=== PATIENT | male | born 1995 | race Caucasian/White ===

== ENCOUNTER 2020-04-22 20:41 | Emergency (ER) | payer SELFPAY ==
[~2020-04-22] VITALS: Ht 175.3 cm; Wt 109.5 kg
[2020-04-22 21:20] LABS: BASOPHILS # (AUTO) 0.1 10^3/uL (0.0-0.1); BASOPHILS % (AUTO) 1 % (0-10); EOSINOPHILS # (AUTO) 0.3 10^3/uL (0.0-0.3); EOSINOPHILS % (AUTO) 3 % (0-10); HEMATOCRIT 50 % (40-54); HEMOGLOBIN 17.4 G/DL (13.3-17.7); LYMPHOCYTES # (AUTO) 2.9 X 10^3 (1.0-4.0); LYMPHOCYTES % (AUTO) 37 % (12-44); MEAN CORPUSCULAR HEMOGLOBIN 30 PG (25-34); MEAN CORPUSCULAR HGB CONC 35 G/DL (32-36); MEAN CORPUSCULAR VOLUME 86 FL (80-99); MEAN PLATELET VOLUME 11.2 FL (7.4-10.4); MONOCYTES # (AUTO) 0.4 X 10^3 (0.0-1.0); MONOCYTES % (AUTO) 5 % (0-12); NEUTROPHILS # (AUTO) 4.2 X 10^3 (1.8-7.8); NEUTROPHILS % (AUTO) 54 % (42-75); PLATELET COUNT 232 10^3/uL (130-400); RED CELL DISTRIBUTION WIDTH 11.9 % (10.0-14.5); WHITE BLOOD COUNT 7.8 10^3/uL (4.3-11.0)
[2020-04-22 21:45] LABS: ALANINE AMINOTRANSFERASE 91 U/L (0-55); ALKALINE PHOSPHATASE 79 U/L (40-136); BILIRUBIN,TOTAL 0.6 MG/DL (0.1-1.0); BUN/CREATININE RATIO 11; CALCIUM 9.7 MG/DL (8.5-10.1); CARBON DIOXIDE 29 MMOL/L (21-32); CHLORIDE 99 MMOL/L (98-107); CREATININE SERUM 1.01 MG/DL (0.60-1.30); GFR ESTIMATED > 60; GLUCOSE 120 MG/DL (70-105); POTASSIUM 3.5 MMOL/L (3.6-5.0); SODIUM 139 MMOL/L (135-145); TOTAL PROTEIN 7.4 GM/DL (6.4-8.2)
[2020-04-22 21:46] LABS: ALBUMIN 4.7 GM/DL (3.2-4.5)
--- NOTE | 2020-04-22 21:48 | Diagnostic Imaging Report ---
INDICATION: Chest discomfort. EXAMINATION: Frontal chest was obtained at 9:17 p.m. FINDINGS: Heart and mediastinal silhouette are normal in appearance. The lungs are clear. There is no pneumothorax or pleural fluid. IMPRESSION: Negative chest. Dictated by: Dictated on workstation # [id number]
--- NOTE | 2020-04-22 22:03 | ED Chest Pain ---
General Chief Complaint: Cardiac/General Problems Stated Complaint: FAST HEART RATE,SHOULDER DISCOMFORT Nursing Triage Note: Pt arrived by private vehicle with chief complaint of heart beating fast and discomfort in left shoulder. Pt stated he had discomfort in left shoulder. Pt stated that it started shortly after 1999. Pt stated he ate dinner then was sitting down relaxing and watching a movie. Pt stated he currently is not in any pain. Pt smokes half a pack of cigarettes a day and is trying to quit. Only past medical history he has had was hernia repair and anxiety. Nursing Sepsis Screen: No Definite Risk Source: patient History of Present Illness Date Seen by Provider: Apr 22, 2020 Time Seen by Provider: 21:00 Initial Comments Patient is a 22-year-old male with history of anxiety presents with palpitations and left shoulder pain starting approximately one hour prior to ED arrival. Patient states he ate dinner was sitting down relaxing watching TV when symptoms began. Shoulder pain resolved prior to Denies shortness of breath or chest pain. No history of exertional chest pain, leg pains, swelling DVT or PE. Patient smokes a pack of cigarettes a day. Facet take any routine medications. Timing/Duration: 1 hour Severity/Quality: mild Radiation: no radiation Activities at Onset: none Prior CP/Workup: no prior chest pain Modifying Factors: improves with antacids Associated Symptoms: denies symptoms Allergies and Home Medications Patient Home Medication List Home Medication List Reviewed: Yes Review of Systems Review of Systems Constitutional: see HPI EENTM: See HPI Respiratory: See HPI Cardiovascular: See HPI Gastrointestinal: See HPI Genitourinary: See HPI Musculoskeletal: see HPI Skin: see HPI Psychiatric/Neurological: See HPI Endocrine: See HPI Hematologic/Lymphatic: See HPI Past Voaywyc-Iewark-Nrtbxq Hx Past Med/Social Hx: Reviewed Nursing Past Med/Soc Hx Patient Social History Alcohol Use: Denies Use Recreational Drug Use: No Smoking Status: Current Everyday Smoker Type Used: Cigarettes 2nd Hand Smoke Exposure: Yes Recent Foreign Travel: No Contact w/Someone Who Travel: No Recent Infectious Disease Expo: No Recent Hopitalizations: No Physical Abuse: No Sexual Abuse: No Mistreated: No Fear: No Seasonal Allergies Seasonal Allergies: No Past Medical History Surgeries: Yes (hernia) Respiratory: No Cardiac: No Neurological: No Genitourinary: No Gastrointestinal: No Abdominal Hernia Musculoskeletal: No Endocrine: No HEENT: No Cancer: No Psychosocial: No Blood Disorders: No Physical Exam Vital Signs Vital Signs - First Documented 04/22/20 20:45 Temp 36.8 Pulse 112 Resp 32 B/P (MAP) 142/89 (106) Pulse Ox 99 O2 Delivery Room Air Capillary Refill : Less Than 3 Seconds Height, Weight, BMI Height: '" Weight: lbs. oz. kg; 35.00 BMI Method: General Appearance: No Apparent Distress, WD/WN, Anxious HEENT: PERRL/EOMI Neck: Non Tender, Supple Respiratory: Chest Non Tender, Lungs Clear Cardiovascular: Regular Rate, Rhythm Gastrointestinal: Normal Bowel Sounds, Non Tender, Soft Extremity: Normal Capillary Refill Neurologic/Psychiatric: Alert, Oriented x3, No Motor/Sensory Deficits, Normal Mood/Affect Skin: Normal Color, Warm/Dry Lymphatic: No Adenopathy Focused Exam Sepsis Stage: Ruled Out Progress/Results/Core Measures Results/Orders Lab Results Laboratory Tests Test 04/22/20 21:02 Range/Units White Blood Count 7.8 4.3-11.0 10^3/uL Red Blood Count 5.77 4.35-5.85 10^6/uL Hemoglobin 17.4 13.3-17.7 G/DL Hematocrit 50 40-54 % Mean Corpuscular Volume 86 80-99 FL Mean Corpuscular Hemoglobin 30 25-34 PG Mean Corpuscular Hemoglobin Concent 35 32-36 G/DL Red Cell Distribution Width 11.9 10.0-14.5 % Platelet Count 232 130-400 10^3/uL Mean Platelet Volume 11.2 H 7.4-10.4 FL Neutrophils (%) (Auto) 54 42-75 % Lymphocytes (%) (Auto) 37 12-44 % Monocytes (%) (Auto) 5 0-12 % Eosinophils (%) (Auto) 3 0-10 % Basophils (%) (Auto) 1 0-10 % Neutrophils # (Auto) 4.2 1.8-7.8 X 10^3 Lymphocytes # (Auto) 2.9 1.0-4.0 X 10^3 Monocytes # (Auto) 0.4 0.0-1.0 X 10^3 Eosinophils # (Auto) 0.3 0.0-0.3 10^3/uL Basophils # (Auto) 0.1 0.0-0.1 10^3/uL Sodium Level 139 135-145 MMOL/L Potassium Level 3.5 L 3.6-5.0 MMOL/L Chloride Level 99 98-107 MMOL/L Carbon Dioxide Level 29 21-32 MMOL/L Anion Gap 11 5-14 MMOL/L Blood Urea Nitrogen 11 7-18 MG/DL Creatinine 1.01 0.60-1.30 MG/DL Estimat Glomerular Filtration Rate > 60 BUN/Creatinine Ratio 11 Glucose Level 120 H 70-105 MG/DL Calcium Level 9.7 8.5-10.1 MG/DL Corrected Calcium 8.5-10.1 MG/DL Total Bilirubin 0.6 0.1-1.0 MG/DL Aspartate Amino Transf (AST/SGOT) 41 H 5-34 U/L Alanine Aminotransferase (ALT/SGPT) 91 H 0-55 U/L Alkaline Phosphatase 79 40-136 U/L Troponin I < 0.30 <0.30 NG/ML Total Protein 7.4 6.4-8.2 GM/DL Albumin 4.7 H 3.2-4.5 GM/DL My Orders Orders - CELESTE BROWN DO Ekg Tracing (04/22/20 21:03) Chest 1 View Ap/Pa Only (04/22/20 21:03) Cbc With Automated Diff (04/22/20 21:12) Comprehensive Metabolic Panel (04/22/20 21:12) Troponin I Fs (04/22/20 21:12) Vital Signs/I&O 04/22/20 20:45 Temp 36.8 Pulse 112 Resp 32 B/P (MAP) 142/89 (106) Pulse Ox 99 O2 Delivery Room Air Blood Pressure Mean: 106 Departure Communication (Admissions) Patient asymptomatic in the emergency department. EKG, chest x-ray and lab reviewed and reassuring. Suspect anxiety state secondary to reflux. Recommend supportive care watchful waiting and PCP follow-up. Return precautions reviewed. All questions asked cancer to the patient's satisfaction prior to departure. Impression Primary Impression: Acid reflux Additional Impressions: Anxiety Chest pain Disposition: 01 HOME, SELF-CARE Condition: Stable Departure-Patient Inst. Add. Discharge Instructions: Take 20 mg Pepcid [id number] twice daily. Follow-up with your PCP in 2-3 days for reevaluation. Return to the ED if new or worsening symptoms. All discharge instructions reviewed with patient and/or family. Voiced understanding. CELESTE BROWN DO Apr 22, 2020 22:03
[2020-04-22 22:07] VITALS: BP 122/73
== END 2020-04-22 22:07 | disposition home or self-care (01) ==
LOC: ER FS 20:42
DX: K21.9 Gastro-esophageal reflux disease without esophagitis (principal); F41.9 Anxiety disorder, unspecified; F17.210 Nicotine dependence, cigarettes, uncomplicated; Z98.890 Other specified postprocedural states
CPT/HCPCS: 36415; 71045; 80053; 84484; 85025; 93041